=== PATIENT | male | born 2000 | race Caucasian/White ===

== ENCOUNTER 2025-01-27 19:40 | Emergency (ER) | payer SELFPAY ==
[2025-01-27] VITALS (10 sets, daily range): BP systolic 118–146; BP diastolic 60–89; PULSE 65–113; RESP 13–22; TEMP 37.4; O2SAT 97–100; BMI 22.3
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
--- NOTE | 2025-01-27 19:50 | EKG_ITS ---
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
[2025-01-27 20:10] LABS: Add Manual Diff / Slide Review NO; Basophils Absolute Auto 0 /uL (0-100); Basophils Percent Auto 0.6 % (0-2); Eosinophils Absolute Auto 200 /uL (0-450); Eosinophils Percent Auto 2.4 % (2-4); Hematocrit 43.2 % (41-53); Hemoglobin 14.5 g/dL (13.5-17.5); Lymphocytes Absolute Auto 2100 /uL (1100-4500); Lymphocytes Percent Auto 29.2 % (25-40); Mean Corpuscular HGB Conc 33.5 % (30-36); Mean Corpuscular Hemoglobin 27.4 PG (26-34); Mean Corpuscular Volume 81.8 fL (80-100); Monocytes Absolute Auto 600 /uL (0-900); Monocytes Percent Auto 7.8 % (3-14); Neutrophils Absolute Auto 4300 /uL (1500-7000); Platelet Count 252 X10^3/uL (150-400); Red Blood Cell Count 5.28 X10^6/uL (4.5-5.9); Red Cell Distribution Width 13.4 % (11.6-14.8); White Blood Cell Count 7.2 X10^3/uL (4.5-11.0)
[2025-01-27 20:18] LABS: Lactate (Lactic Acid) 1.3 mmol/L (0.7-2.1)
[2025-01-27 20:21] LABS: Alanine Aminotransferase 42 IU/L (<50); Albumin 4.2 g/dL (3.5-5.0); Albumin Globulin Ratio 1.6 (1.0-2.8); Alkaline Phosphatase 90 U/L (38-126); Aspartate Aminotransferase 38 IU/L (17-59); BUN Creatinine Ratio 16.1 (6-22); Bilirubin Total 0.5 mg/dL (0.2-1.3); Blood Urea Nitrogen 14 mg/dL (9-20); Calcium 9.3 mg/dL (8.4-10.2); Carbon Dioxide 25 mmol/L (22-32); Chloride 102 mmol/L (98-107); Creatine Kinase 126 U/L (55-170); Estimated Glomerular Filt Rate > 60 mL/min (>60); Ethanol (ETOH) < 10 mg/dL; Globulin 2.7 g/dL (1.7-4.1); Glucose 122 mg/dL (70-100); HEMOLYSIS < 15 (0-50); Potassium 4.2 mmol/L (3.4-5.1); Sodium 136 mmol/L (137-145); Total Protein 6.9 g/dL (6.3-8.2)
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
== END 2025-01-27 22:34 | disposition home or self-care (01) ==
PROVIDERS: Emergency Provider Emergency Medicine
DX: T59.811A Toxic effect of smoke, accidental (unintentional), initial encounter (principal); T23.009A Burn of unspecified degree of unspecified hand, unspecified site, initial encounter
CPT/HCPCS: 36415; 71045; 80053; 80320; 82550; 83605; 85025; 88740; 93005; 93010; 99284